=== PATIENT | male | born 1950 | race Asian ===

== ENCOUNTER 2017-09-02 08:29 | Emergency (ER) | payer MEDICARE ==
[~2017-09-02] VITALS: Ht 175.3 cm; Wt 68.0 kg
[2017-09-02 08:34] VITALS: BP 104/56; Ht 175.3 cm; Wt 68.0 kg
== END 2017-09-02 09:17 | disposition home or self-care (01) ==
LOC: ED 08:29
DX: B02.8 Zoster with other complications (principal); E03.9 Hypothyroidism, unspecified

== ENCOUNTER 2017-11-25 17:11 | Emergency (ER) | payer MEDICARE ==
[~2017-11-25] VITALS: Ht 175.3 cm; Wt 67.1 kg
[2017-11-25 17:39] VITALS: Ht 175.3 cm; Wt 67.1 kg
[2017-11-25 19:09] LABS: BASOPHIL % 0.3 % (0-2); PLATELET COUNT 269 x10^3mcL (130-400); RED CELL DISTRIBUTION WIDTH 14.1 % (11.5-14.5)
[2017-11-25 19:21] LABS: CALCIUM 8.5 mg/dL (8.5-10.1); CARBON DIOXIDE 29.2 mmol/L (21-32); CHLORIDE SERUM 108 mmol/L (98-107); CREATININE SERUM 1.1 mg/dL (0.7-1.3); GFR1 > 60 mL/min; GLUCOSE SERUM 111 mg/dL (74-106); SODIUM SERUM 144 mmol/L (136-145)
[2017-11-25 19:26] LABS: ALBUMIN 3.1 g/dL (3.4-5.0); ALKALINE PHOSPHATASE 71 U/L (46-116); ALT/SGPT 15 U/L (16-63); AMYLASE 40 U/L (25-115); AST/SGOT 18 U/L (15-37); BILIRUBIN TOTAL 0.32 mg/dL (0.20-1.00); LIPASE 91 IU/L (73-393); TOTAL PROTEIN, SERUM 7.2 g/dL (6.4-8.2)
[2017-11-25 20:08] LABS: UA SPECIFIC GRAVITY 1.025 (1.005-1.035); microscopic required? YES; urine erythrocyte TRACE (NEGATIVE)
[2017-11-25 20:59] VITALS: BP 163/72
== END 2017-11-25 20:59 | disposition home or self-care (01) ==
LOC: ED 17:11
PROVIDERS: Emergency Medicine
DX: R19.7 Diarrhea, unspecified (principal); R68.83 Chills (without fever); E03.9 Hypothyroidism, unspecified
CPT/HCPCS: J7030